=== PATIENT | male | born 1945 | race Caucasian/White ===

== ENCOUNTER 2019-11-28 14:42 | Outpatient (REF) | payer OTHER, SELFPAY | END 2019-11-28 14:43 | disposition home or self-care (01) | LOC: HO.HMGCLDS 14:42 | PROVIDERS: PCP Internal Medicine; Visit Provider Internal Medicine | DX: Z20.828 Contact with and (suspected) exposure to other viral communicable diseases (principal) | CPT/HCPCS: 87635 ==